=== PATIENT | female | born 1980 | race Caucasian/White ===

== ENCOUNTER 2017-10-11 16:46 | Inpatient (IN) | payer OTHER ==
[~2017-10-11] VITALS: Ht 154.9 cm; Wt 69.4 kg
[~2017-10-11 16:46] MED LIST: ADVAIR HFA115 MCG/21 INH; CELEXA20 MG PO; IBUPROFEN 800800 M1 PO; ZANTAC 150MG T150 MG PO
[2017-10-11 16:47] VITALS: BP 176/95
[2017-10-11] MEDS ORDERED: SYMBICORT160 MCG/4. INH (16:49)
[2017-10-11] MEDS ORDERED: VENTOLIN HFA 1818 GM INH (16:49)
[2017-10-11 17:19] LABS: HEMATOCRIT 36.9 % (37.0-47.0); HEMOGLOBIN 12.2 gm/dL (12.0-15.0); MCH 29.9 pg (26.0-34.0); MCV 90.7 fL (80.0-100.0); MPV 8.9 fl. (7.2-11.1); NUCLEATED RBCS 0 /100WBC; PLATELET COUNT* 328 thou/uL (150-400); RBC 4.07 mil/uL (4.20-5.00); WBC 19.8 thou/uL (4.0-11.0)
[2017-10-11 17:24] LABS: CALCIUM 8.5 mg/dL (8.5-10.1); CREATININE 0.6 mg/dL (0.6-1.3); POTASSIUM 3.7 mmol/L (3.5-5.1)
[2017-10-11 17:28] LABS: TOTAL BILIRUBIN 0.2 mg/dL (<0.1-1.0); TOTAL PROTEIN 7.8 g/dL (6.4-8.2)
[2017-10-11 17:37] LABS: HCO3 19.8 mmol/L (22.0-26.0); PCO2 36.2 mmHg (35.0-45.0); PO2 88.3 mmHg (75.0-100.0); pH 7.356 (7.340-7.450)
[2017-10-11 18:02] LABS: ABSOLUTE LYMPHOCYTES 1.8 thou/uL (0.8-5.3); ABSOLUTE MONOCYTES 0.4 thou/uL (0.0-1.2); ABSOLUTE NEUTROPHILS 17.6 thou/uL (1.6-8.1)
[2017-10-11 18:03] LABS: PLATELET ESTIMATE ADEQUATE
[2017-10-11 19:30] LABS: INFLUENZA A ANTIGEN None Detected (None Detect); INFLUENZA B ANTIGEN None Detected (None Detect)
[2017-10-11 20:00] VITALS: BP 123/71
[2017-10-11 20:30] VITALS: BP 135/80
[2017-10-11] MEDS ORDERED: ZANTAC 150MG T150 MG PO (20:43)
[2017-10-11] MEDS ORDERED: IBUPROFEN 800800 M1 PO (20:43)
[2017-10-12] VITALS: BP 133/71
[2017-10-12 04:00] VITALS: BP 126/72
[2017-10-12 07:32] VITALS: BP 120/82
--- NOTE | 2017-10-12 10:45 | EKG ---
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 : 1980 Requested By: Larissa Valadez Order Number: [id number] Leslie MD: Anthony Gillis Measurements Intervals [place] Rate: 107 P: 80 OR: 155 QRS: 73 QRSD: 86 T: 9 QT: 353 QTc: 471 Interpretive Statements Sinus tachycardia Biatrial enlargement Borderline repolarization abnormality Baseline wander in lead(s) V2 No previous ECG available for comparison Electronically Signed On 10-12-2017 10:45:35 CDT by Anthony Gillis [email or web address] <ELECTRONICALLY SIGNED> By: Anthony Gillis MD, [facility] 10/12/17 1045 16 16 Anthony Gillis MD, [facility] /EPI
[2017-10-12 15:47] VITALS: BP 110/56
[2017-10-12 16:00] VITALS: BP 113/64
[2017-10-12 20:00] VITALS: BP 111/54
[2017-10-13 00:25] VITALS: BP 132/62
[2017-10-13 04:17] VITALS: BP 122/66
[2017-10-13 08:00] VITALS: BP 121/71
[2017-10-13 11:37] LABS: ABSOLUTE MONOCYTES 1.1 thou/uL (0.0-1.2); BASOPHILS 0.2 %; HEMATOCRIT 32.4 % (37.0-47.0); LYMPHOCYTES 4.9 %; MCH 30.3 pg (26.0-34.0); MCHC 33.9 g/dL (28.0-37.0); MCV 89.4 fL (80.0-100.0); MONOCYTES 5.3 %; MPV 8.3 fl. (7.2-11.1); NUCLEATED RBCS 0 /100WBC; PLATELET COUNT* 295 thou/uL (150-400); POLYS 89.6 %; RBC 3.62 mil/uL (4.20-5.00); RDW-CV 13.3 % (10.5-14.5); WBC 21.2 thou/uL (4.0-11.0)
[2017-10-13 11:45] LABS: CALCIUM 8.5 mg/dL (8.5-10.1); CREATININE 0.6 mg/dL (0.6-1.3); MAGNESIUM 2.2 mg/dL (1.8-2.4); POTASSIUM 3.3 mmol/L (3.5-5.1)
[2017-10-13 13:02] VITALS: BP 135/59
[2017-10-13 15:06] LABS: CALCIUM 8.2 mg/dL (8.5-10.1); CREATININE 0.8 mg/dL (0.6-1.3); POTASSIUM 3.1 mmol/L (3.5-5.1)
[2017-10-13 17:08] VITALS: BP 116/72
[2017-10-13 20:00] VITALS: BP 136/74
[2017-10-14] VITALS: BP 127/76
[2017-10-14 04:18] VITALS: BP 139/64
[2017-10-14 04:48] LABS: HEMATOCRIT 33.1 % (37.0-47.0); HEMOGLOBIN 11.1 gm/dL (12.0-15.0); MCHC 33.5 g/dL (28.0-37.0); MCV 89.6 fL (80.0-100.0); MPV 9.3 fl. (7.2-11.1); RBC 3.69 mil/uL (4.20-5.00); RDW-CV 13.2 % (10.5-14.5); WBC 19.6 thou/uL (4.0-11.0)
[2017-10-14 05:11] LABS: CALCIUM 8.7 mg/dL (8.5-10.1); CREATININE 0.8 mg/dL (0.6-1.3); MAGNESIUM 2.2 mg/dL (1.8-2.4); POTASSIUM 4.1 mmol/L (3.5-5.1)
[2017-10-14 08:00] VITALS: BP 125/70
[2017-10-14 12:00] VITALS: BP 150/83
[2017-10-14] MEDS ORDERED: CLARITIN10 MG PO (15:22)
[2017-10-14] MEDS ORDERED: PREDNISONE 20 M20 MG PO (15:28)
[2017-10-14 15:49] VITALS: BP 150/83
[2017-10-14 16:00] VITALS: BP 147/73
[2017-10-14] MEDS ORDERED: LEVALBUTER1.25 MG/0. INH (16:45)
[2017-10-14] MEDS ORDERED: SINGULAIR 10 MG10 M1 PO (16:45)
== END 2017-10-14 17:05 | disposition home or self-care (01) | DRG 189 ==
LOC: M.ERS 16:46 → M.2W 18:35 → M.TBA-ER 18:35 → M.2W 20:35
PROVIDERS: Family Medicine; Personal Emergency Response Attendant; ADMIT Internal Medicine
DX: J96.01 Acute respiratory failure with hypoxia (principal); R65.11 Systemic inflammatory response syndrome (SIRS) of non-infectious origin with acute organ dysfunction; J45.41 Moderate persistent asthma with (acute) exacerbation; F41.9 Anxiety disorder, unspecified; J30.1 Allergic rhinitis due to pollen; Z87.891 Personal history of nicotine dependence; Z79.899 Other long term (current) drug therapy; Z82.5 Family history of asthma and other chronic lower respiratory diseases